=== PATIENT | female | born 1940 | race American Indian/Alaskan Native ===

== ENCOUNTER 2020-03-20 06:27 | Emergency (ER) | payer OTHER, MEDICARE ==
[~2020-03-20] VITALS: Ht 160 cm; Wt 81.2 kg
[~2020-03-20 06:27] MED LIST: ALPR0.5T24 PO; ASPIRIN LOW81 MG OR; NEXIUM40 M1 PO; PERFOROMIST20 MCG IN; PULMICORT180 MCG IN
[2020-03-20 06:33] VITALS: TEMP 97.9
[2020-03-20 06:57] LABS: PLATELET COUNT 274 K/uL (152-353)
[2020-03-20 07:05] LABS: POTASSIUM 4.2 mmol/L (3.6-5.2); SODIUM 140 mmol/L (136-145)
[2020-03-20 09:03] VITALS: BP 130/78
== END 2020-03-20 09:08 | disposition home or self-care (01) ==
LOC: ED 06:27
PROVIDERS: Emergency Medicine Emergency Medical Services
DX: R07.89 Other chest pain (principal); R30.0 Dysuria
CPT/HCPCS: 80053; 81000; 83880; 84484; 85027; 87088; 93005; 99283

== ENCOUNTER → 2020-08-25 | Emergency (ER) | payer OTHER, MEDICARE ==
[~2020-08-25] VITALS: Ht 160 cm; Wt 78.0 kg
[~2020-08-25] MED LIST changes: +METOPROLOL25 M1 PO
[2020-08-25 08:45] VITALS: TEMP 98
[2020-08-25 09:12] LABS: PLATELET COUNT 238 K/uL (152-353)
[2020-08-25 09:20] LABS: POTASSIUM 3.9 mmol/L (3.6-5.2); SODIUM 143 mmol/L (136-145)
[2020-08-25 09:30] LABS: PARTIAL THROMBOPLASTIN TIME 24.9 SECONDS (24.5-33.6)
[2020-08-25 10:45] VITALS: BP 157/79
== END ==
LOC: ED 08:40
PROVIDERS: Hospitalist
DX: I16.0 Hypertensive urgency (principal)
CPT/HCPCS: 80053; 82550; 83880; 84484; 85027; 85610; 85730; 93005; 99283